=== PATIENT | female | born 1960 | race African-American/Black ===

== ENCOUNTER 2016-11-13 12:51 | Inpatient (IN) | payer BC ==
--- NOTE | 2016-11-13 13:08 | PDOC ---
History of Present Illness - General Chief Complaint: Chest Pain Stated Complaint: CHEST PAIN Time Seen by Provider: 11/13/16 13:07 - History of Present Illness Initial Comments: 11/13/16 13:07 Patient is a 56 year old female Past History - Past Medical History Allergies/Adverse Reactions: Allergies Allergy/AdvReac Type Severity Reaction Status Date / Time No Known Allergies Allergy Verified 11/13/16 13:06 Home Medications: Ambulatory Orders Cyclobenzaprine HCl [Flexeril] 5 mg PO TID PRN #12 tablet 04/20/15 Naproxen [Naprosyn -] 500 mg PO BID PRN #14 tablet 04/20/15 Diabetes: Yes (BORDERLINE) - Psycho/Social/Smoking Cessation Hx Suicidal Ideation: No Smoking History: Never smoked Hx Alcohol Use: No Drug/Substance Use Hx: No *Physical Exam - Vital Signs Last Vital Signs Temp Pulse Resp BP Pulse Ox 102.4 F H 81 16 178/72 98 11/13/16 12:55 11/13/16 12:55 11/13/16 12:55 11/13/16 12:55 11/13/16 12:55 Medical Decision Making - Medical Decision Making 11/13/16 13:08
--- NOTE | 2016-11-13 13:32 | PDOC ---
History of Present Illness - General History Source: Patient Exam Limitations: No Limitations <Gris Germain - Last Filed: 11/13/16 14:23> - General History Source: Patient Exam Limitations: No Limitations - History of Present Illness Initial Comments: 11/13/16 13:58 The patient is a 56 year old female with a significant PMH of hypertension and borderline diabetes who presents to the emergency department with midsternal chest pain beginning approximately yesterday morning. The patient reports the chest pain as localized in the midsternal area with no radiation and constant since yesterday. Her chest pain is pleuritic in nature and exacerbated by lying on her right side. Patient states her chest pain is alleviated by lying on her left side. She reports associated fever, chills, shortness of breath and productive cough (brown-yellow sputum). The patient notes that this chest pain is similar to an episode she had last week, which she believes was due to gas. She took advil and pepto bismol for her chest pain to no relief. The patient was prescribed water pills for hypertension last month but she admits to be non- compliant. The patient denies any recent travel or sick contacts. The patient denies headache or dizziness. Denies numbness or tingling. Denies abdominal pain, nausea, vomiting, diarrhea or constipation. Denies hemoptysis. Denies dysuria, frequency, urgency or hematuria. Allergies: NKDA Social history: Occasional alcohol use. No reported cigarette or drug use. PCP: Dr. Zamora <Js Hackett - Last Filed: 11/13/16 15:45> - General Chief Complaint: Chest Pain Stated Complaint: CHEST PAIN Time Seen by Provider: 11/13/16 13:07 Past History - Past Medical History Diabetes: Yes (BORDERLINE) - Psycho/Social/Smoking Cessation Hx Suicidal Ideation: No Smoking History: Never smoked Hx Alcohol Use: No Drug/Substance Use Hx: No <Gris Germain - Last Filed: 11/13/16 14:23> <Js Hackett - Last Filed: 11/13/16 15:45> - Past Medical History Allergies/Adverse Reactions: Allergies Allergy/AdvReac Type Severity Reaction Status Date / Time No Known Allergies Allergy Verified 11/13/16 13:06 Home Medications: Ambulatory Orders Unobtainable [Unobtainable] 11/13/16 Review of Systems - Review of Systems Comments:: 11/13/16 13:58 GENERAL/CONSTITUTIONAL: (+) Fevers. (+) Chills. No weakness. HEAD, EYES, EARS, NOSE AND THROAT: No change in vision. No ear pain or discharge. No sore throat. CARDIOVASCULAR: (+) Midsternal chest pain. (+) Shortness of breath RESPIRATORY: (+) Cough, productive of brown-yellow sputum. No wheezing, or hemoptysis. GASTROINTESTINAL: No nausea, vomiting, diarrhea or constipation. GENITOURINARY: No dysuria, frequency, or change in urination. MUSCULOSKELETAL: No joint or muscle swelling or pain. No neck or back pain. SKIN: No rash NEUROLOGIC: No headache, vertigo, loss of consciousness, or change in strength/ sensation. ENDOCRINE: No increased thirst. No abnormal weight change. HEMATOLOGIC/LYMPHATIC: No anemia, easy bleeding, or history of blood clots. ALLERGIC/IMMUNOLOGIC: No hives or skin allergy. <Js Hackett - Last Filed: 11/13/16 15:45> *Physical Exam - Vital Signs Last Vital Signs Temp Pulse Resp BP Pulse Ox 102.4 F H 81 16 178/72 98 11/13/16 12:55 11/13/16 12:55 11/13/16 12:55 11/13/16 12:55 11/13/16 12:55 <Gris Germain - Last Filed: 11/13/16 14:23> - Vital Signs Last Vital Signs Temp Pulse Resp BP Pulse Ox 102.4 F H 81 16 178/72 98 11/13/16 12:55 11/13/16 12:55 11/13/16 12:55 11/13/16 12:55 11/13/16 12:55 - Physical Exam Comments: 11/13/16 14:10 GENERAL: Awake, alert, and fully oriented, in no acute distress HEAD: No signs of trauma EYES: PERRLA, EOMI, sclera anicteric, conjunctiva clear ENT: Auricles normal inspection, hearing grossly normal, nares patent, oropharynx clear without exudates. Moist mucosa NECK: Normal ROM, supple, no lymphadenopathy, JVD, or masses LUNGS: (+) Sternal chest wall tenderness. Breath sounds equal, clear to auscultation bilaterally. No wheezes, and no crackles HEART: Regular rate and rhythm, normal S1 and S2, no murmurs, rubs or gallops ABDOMEN: (+) Obese. Soft, nontender, normoactive bowel sounds. No guarding, no rebound. No masses EXTREMITIES: Normal range of motion, no edema. No clubbing or cyanosis. No cords, erythema, or tenderness. DP/PT pulses 2+ and symmetric. NEUROLOGICAL: Cranial nerves II through XII grossly intact. Normal speech. SKIN: Warm, Dry, normal turgor, no rashes or lesions noted. <Js Hackett - Last Filed: 11/13/16 15:45> Heart Score/ECG Review #1 General ECG Interpretation: Sinus Rhythm, Normal Rate (76 bpm), Normal Intervals , No acute ischemic changes Compared to previous ECG there are: Previous ECG unavail - ECG Intrepretation Rhythm: Regularly Irregular - [place]: Normal - P and [place] Comment:: 11/13/16 13:42 TWI III, AVF <Gris Germain - Last Filed: 11/13/16 14:23> ED Treatment Course - LABORATORY CBC & Chemistry Diagram: 11/13/16 13:46 11/13/16 13:46 - RADIOLOGY Radiograph Interpretation: 11/13/16 15:42 Exam: CXR, interpreted by Dr. Guardado Reviewed by: Dr. Germain Impression: Shallow inspiration. No evidence of active disease. <Js Hackett - Last Filed: 11/13/16 15:45> Medical Decision Making - Medical Decision Making 11/13/16 13:29 56 yo F with h/o DM HTN, with chest pain, with associated SOB , chills, and feeling feverish. feels pain is worse with lying flat and deep breathing. no n/v no leg swelling .no h/o pe or dvt. on exam awake alert lungs clear heart RRR no mrg. abd soft NT ND. ext differential dgx, mi, pna, uti, angina, plan labs cardia, ekg cbc cmp cxr . aspirin. tylenol for fever. cxr r/o pna. phuong admit. 11/13/16 14:24 <Gris Germain - Last Filed: 11/13/16 14:23> *DC/Admit/Observation/Transfer - Attestations Scribe Attestion: 11/13/16 14:10 Documentation prepared by Js Hackett, acting as regional medical director for Gris Germain MD. <Js Hackett - Last Filed: 11/13/16 15:45>
[2016-11-13] MEDS ORDERED: ACETAMINOPHEN 325 MG TABLET (FP) PO ONE (13:40)
[2016-11-13] MEDS ORDERED: ACETAMINOPHEN 325 MG TABLET (FP) ONE (13:53)
[2016-11-13 14:26] LABS: URINE APPEARANCE CLEAR; URINE BILIRUBIN NEGATIVE (NEGATIVE); URINE BLOOD 1+ (NEGATIVE); URINE COLOR LT. YELLOW; URINE GLUCOSE (UA) NEGATIVE (NEGATIVE); URINE KETONE NEGATIVE (NEGATIVE); URINE LEUK ESTERASE NEGATIVE (NEGATIVE); URINE NITRITE NEGATIVE (NEGATIVE)
[2016-11-13 14:32] LABS: URINE PROTEIN 1+ (NEGATIVE)
[2016-11-13 14:46] LABS: BASOPHIL 0.5 % (0-2.0); EOSINOPHIL 0.3 % (0-4.5); MCH 28.7 pg (25.7-33.7); MCHC 32.8 g/dl (32.0-36.0); MEAN CELL VOLUME 87.4 fl (80-96); MEAN PLT VOLUME 6.4 fl (7.5-11.1); NEUTROPHILS 84.7 % (42.8-82.8); PLATELET COUNT 247 K/MM3 (134-434); RDW 13.8 % (11.6-15.6); WHITE BLOOD COUNT 13.9 K/mm3 (4.0-10.0)
[2016-11-13 14:52] LABS: URINE MUCUS RARE; URINE RBC 13 /hpf (0-3); URINE WBC 2 /hpf (3-5)
[2016-11-13 15:40] LABS: ALBUMIN 3.2 g/dl (3.4-5.0); ANION GAP 11 (8-16); BILIRUBIN,TOTAL 0.5 mg/dL (0.2-1.0); CALCIUM 8.8 mg/dL (8.5-10.1); CO2 28 mmol/L (21-32); CREATININE 0.9 mg/dL (0.55-1.02); GLUCOSE,RANDOM 105 mg/dL (74-106); SGOT/AST 11 U/L (15-37); SGPT/ALT 19 U/L (12-78); TOT PROT 7.5 g/dl (6.4-8.2)
[2016-11-13 15:43] LABS: ALK PHOS 90 U/L (45-117); CPK 79 IU/L (26-192); TROPONIN I < 0.02 ng/ml (0.00-0.05)
--- NOTE | 2016-11-13 18:38 | PDOC ---
*Physical Exam - Vital Signs Last Vital Signs Temp Pulse Resp BP Pulse Ox 102.4 F H 81 16 178/72 98 11/13/16 12:55 11/13/16 12:55 11/13/16 12:55 11/13/16 12:55 11/13/16 12:55 <Zita Roy - Last Filed: 11/13/16 19:31> - Vital Signs Last Vital Signs Temp Pulse Resp BP Pulse Ox 102.4 F H 81 16 178/72 98 11/13/16 12:55 11/13/16 12:55 11/13/16 12:55 11/13/16 12:55 11/13/16 12:55 <Mehdi Rivas - Last Filed: 11/13/16 19:35> ED Treatment Course - LABORATORY CBC & Chemistry Diagram: 11/13/16 13:46 11/13/16 13:46 - ADDITIONAL ORDERS Additional order review: Laboratory Results 11/13/16 11/13/16 14:07 13:46 Sodium 138 Potassium 4.0 Chloride 99 Carbon Dioxide 28 Anion Gap 11 BUN 9 D Creatinine 0.9 Creat Clearance w eGFR > 60 Random Glucose 105 Calcium 8.8 Total Bilirubin 0.5 AST 11 L ALT 19 Alkaline Phosphatase 90 Creatine Kinase 79 Troponin I < 0.02 Total Protein 7.5 Albumin 3.2 L Urine Color Lt. yellow Urine Appearance Clear Urine pH 7.0 Urine Protein 1+ H Urine Glucose (UA) Negative Urine Ketones Negative Urine Blood 1+ H Urine Nitrite Negative Urine Bilirubin Negative Urine Urobilinogen 1.0 Ur Leukocyte Esterase Negative Urine RBC 13 Urine WBC 2 Ur Epithelial Cells Rare Urine Mucus Rare 11/13/16 13:46 RBC 4.27 MCV 87.4 MCHC 32.8 RDW 13.8 MPV 6.4 L Neutrophils % 84.7 H Lymphocytes % 7.8 L Monocytes % 6.7 Eosinophils % 0.3 Basophils % 0.5 - Medications Given in the ED: ED Medications Discontinued Medications Generic Name Dose Route Start Last Admin Trade Name Freq PRN Reason Stop Dose Admin Acetaminophen 650 mg 11/13/16 13:40 11/13/16 14:00 Tylenol - PO 11/13/16 13:41 650 mg ONCE ONE Administration <Zita Roy - Last Filed: 11/13/16 19:31> - LABORATORY CBC & Chemistry Diagram: 11/13/16 13:46 11/13/16 13:46 - ADDITIONAL ORDERS Additional order review: Laboratory Results 11/13/16 11/13/16 14:07 13:46 Sodium 138 Potassium 4.0 Chloride 99 Carbon Dioxide 28 Anion Gap 11 BUN 9 D Creatinine 0.9 Creat Clearance w eGFR > 60 Random Glucose 105 Calcium 8.8 Total Bilirubin 0.5 AST 11 L ALT 19 Alkaline Phosphatase 90 Creatine Kinase 79 Troponin I < 0.02 Total Protein 7.5 Albumin 3.2 L Urine Color Lt. yellow Urine Appearance Clear Urine pH 7.0 Urine Protein 1+ H Urine Glucose (UA) Negative Urine Ketones Negative Urine Blood 1+ H Urine Nitrite Negative Urine Bilirubin Negative Urine Urobilinogen 1.0 Ur Leukocyte Esterase Negative Urine RBC 13 Urine WBC 2 Ur Epithelial Cells Rare Urine Mucus Rare 11/13/16 13:46 RBC 4.27 MCV 87.4 MCHC 32.8 RDW 13.8 MPV 6.4 L Neutrophils % 84.7 H Lymphocytes % 7.8 L Monocytes % 6.7 Eosinophils % 0.3 Basophils % 0.5 - Medications Given in the ED: ED Medications Discontinued Medications Generic Name Dose Route Start Last Admin Trade Name Freq PRN Reason Stop Dose Admin Acetaminophen 650 mg 11/13/16 13:40 11/13/16 14:00 Tylenol - PO 11/13/16 13:41 650 mg ONCE ONE Administration <Mehdi Rivas - Last Filed: 11/13/16 19:35> Medical Decision Making - Medical Decision Making Will give Rocephin and Zithromax Will obtain blood culture and lactic acid Dx: pneumonia VALENTINO Will admit to Dr. Berger. <Zita Roy - Last Filed: 11/13/16 19:31> *DC/Admit/Observation/Transfer <Zita Roy - Last Filed: 11/13/16 19:31> - Discharge Dispostion Admit: Yes <Mehdi Rivas - Last Filed: 11/13/16 19:35> Diagnosis at time of Disposition: Pleural effusion Pneumonia Qualifiers: Pneumonia type: due to unspecified organism Laterality: left Lung location: upper lobe of lung Qualified Code(s): J18.1 - Lobar pneumonia, unspecified organism - Discharge Dispostion Condition at time of disposition: Improved
[2016-11-13] MEDS ORDERED: AZITHROMYCIN IVPB 500 MG in DEXTROSE 5%-WATER - 250 ML IVPB ONE (18:40)
[2016-11-13] MEDS ORDERED: CEFTRIAXONE 1 GM in DEXTROSE 5%-WATER - 50 ML IVPB ONE (18:40)
[2016-11-13] MEDS ORDERED: AZITHROMYCIN IVPB 250 ML IVPB ONE (19:13)
[2016-11-13] MEDS ORDERED: CEFTRIAXONE 50 ML ONE (19:13)
[2016-11-13] MEDS ORDERED: IBUPROFEN 600 MG TABLET (FP) PO ONE ×2 (19:30→19:31)
--- NOTE | 2016-11-13 20:49 | HP ---
Admitting History and Physical - Primary Care Physician PCP: Ana Luisa Berger - Admission History of Present Illness: 56 year old female with a significant PMH of hypertension and borderline diabetes who presents to the emergency department with midsternal chest pain beginning approximately yesterday morning. The patient reports the chest pain as localized in the midsternal area with no radiation and constant since yesterday. Her chest pain is pleuritic in nature and exacerbated by lying on her right side. Patient states her chest pain is alleviated by lying on her left side. She reports associated fever, chills, shortness of breath and productive cough (brown-yellow sputum). The patient notes that this chest pain is similar to an episode she had last week, which she believes was due to gas. She took advil and pepto bismol for her chest pain to no relief. - Past Medical History Cardiovascular: Yes: HTN Endocrine: Yes: Diabetes Mellitus - Smoking History Smoking history: Never smoked - Alcohol/Substance Use Hx Alcohol Use: No Home Medications - Allergies Allergies/Adverse Reactions: Allergies Allergy/AdvReac Type Severity Reaction Status Date / Time No Known Allergies Allergy Verified 11/13/16 13:06 - Home Medications Home Medications: Ambulatory Orders Unobtainable [Unobtainable] 11/13/16 Physical Examination Vital Signs: Vital Signs Temperature 101.4 F H 11/13/16 19:25 Pulse Rate 82 11/13/16 19:25 Respiratory Rate 22 11/13/16 19:25 Blood Pressure 137/72 11/13/16 19:25 O2 Sat by Pulse Oximetry (%) 97 11/13/16 19:25 Constitutional: Yes: No Distress HENT: Yes: Atraumatic Neck: Yes: Supple Cardiovascular: Yes: Regular Rate and Rhythm Respiratory: Yes: Rhonchi Gastrointestinal: Yes: Normal Bowel Sounds Extremities: Yes: WNL Neurological: Yes: Alert, Oriented Problem List - Problems (1) Pleural effusion Code(s): J90 - PLEURAL EFFUSION, NOT ELSEWHERE CLASSIFIED (2) Pneumonia Assessment/Plan: iv abc prn tylenol for fever bcx id consult Code(s): J18.9 - PNEUMONIA, UNSPECIFIED ORGANISM Qualifiers: Pneumonia type: due to unspecified organism Laterality: left Lung location: upper lobe of lung Qualified Code(s): J18.1 - Lobar pneumonia, unspecified organism Assessment/Plan Laboratory Tests 11/13/16 11/13/16 11/13/16 13:46 13:46 14:07 WBC 13.9 H RBC 4.27 Hgb 12.2 Hct 37.3 MCV 87.4 MCH 28.7 MCHC 32.8 RDW 13.8 Plt Count 247 MPV 6.4 L Neutrophils % 84.7 H Lymphocytes % 7.8 L Monocytes % 6.7 Eosinophils % 0.3 Basophils % 0.5 Sodium 138 Potassium 4.0 Chloride 99 Carbon Dioxide 28 Anion Gap 11 BUN 9 D Creatinine 0.9 Creat Clearance w eGFR > 60 Random Glucose 105 Lactic Acid Calcium 8.8 Total Bilirubin 0.5 AST 11 L ALT 19 Alkaline Phosphatase 90 Creatine Kinase 79 Troponin I < 0.02 Total Protein 7.5 Albumin 3.2 L Urine Color Lt. yellow Urine Appearance Clear Urine pH 7.0 Ur Specific [place] 1.015 Urine Protein 1+ H Urine Glucose (UA) Negative Urine Ketones Negative Urine Blood 1+ H Urine Nitrite Negative Urine Bilirubin Negative Urine Urobilinogen 1.0 Ur Leukocyte Esterase Negative Urine RBC 13 Urine WBC 2 Ur Epithelial Cells Rare Urine Mucus Rare 11/13/16 18:50 WBC RBC Hgb Hct MCV MCH MCHC RDW Plt Count MPV Neutrophils % Lymphocytes % Monocytes % Eosinophils % Basophils % Sodium Potassium Chloride Carbon Dioxide Anion Gap BUN Creatinine Creat Clearance w eGFR Random Glucose Lactic Acid 1.9 Calcium Total Bilirubin AST ALT Alkaline Phosphatase Creatine Kinase Troponin I Total Protein Albumin Urine Color Urine Appearance Urine pH Ur Specific [place] Urine Protein Urine Glucose (UA) Urine Ketones Urine Blood Urine Nitrite Urine Bilirubin Urine Urobilinogen Ur Leukocyte Esterase Urine RBC Urine WBC Ur Epithelial Cells Urine Mucus
[2016-11-14 02:38] VITALS: BMI 47.0
[2016-11-14 07:55] LABS: BASOPHIL 0.4 % (0-2.0); EOSINOPHIL 0.8 % (0-4.5); MCH 28.9 pg (25.7-33.7); MEAN CELL VOLUME 87.7 fl (80-96); MEAN PLT VOLUME 6.6 fl (7.5-11.1); NEUTROPHILS 80.2 % (42.8-82.8); PLATELET COUNT 244 K/MM3 (134-434); RDW 13.7 % (11.6-15.6); WHITE BLOOD COUNT 15.5 K/mm3 (4.0-10.0)
[2016-11-14 08:02] LABS: ALBUMIN 2.9 g/dl (3.4-5.0); ANION GAP 10 (8-16); CALCIUM 8.8 mg/dL (8.5-10.1); CO2 29 mmol/L (21-32); CREATININE 0.8 mg/dL (0.55-1.02); GLUCOSE,RANDOM 109 mg/dL (74-106); SGOT/AST 8 U/L (15-37); SGPT/ALT 18 U/L (12-78)
[2016-11-14 08:04] LABS: ALK PHOS 81 U/L (45-117); BILIRUBIN,TOTAL 0.4 mg/dL (0.2-1.0); TOT PROT 6.9 g/dl (6.4-8.2)
[2016-11-14] MEDS ORDERED: PT OWN MED DRAWER 7, Y5N ONE (09:03)
[2016-11-14] MEDS ORDERED: CEFTRIAXONE 1 GM in DEXTROSE 5%-WATER - 50 ML IVPB SCH ×2 (10:00→11:00)
[2016-11-14] MEDS ORDERED: DEXTROSE 5%-WATER - 50 ML IVPB ONE ×3 (11:42→17:23)
[2016-11-14] MEDS ORDERED: cefTRIAXone SODIUM 1 GM VIAL ONE (11:42)
--- NOTE | 2016-11-14 13:32 | CONSULT ---
Consult Consult Specialty:: infectious diseases Reason for Consultation:: pneumonia - History of Present Illness Chief Complaint: sob,cough,chills ,sweats History of Present Illness: morbidly obese 57 y/o female who came back from [facility] [place] in [place] ahs not been feeling well for a week or so says had chills and night sweats last two days she has been feeling very sick and decided to come to the hospital patient says she is bordereling diabetes and hypertensive patient was worked and found to ahve pneumonia and was started on abx patient also came in with leukocytosis which ahs increased since admission currently she feels well and says she can walk a bit now denies any fever,nausea or vomiting - History Source History Provided By: Patient Limitations to Obtaining History: No Limitations - Past Medical History Cardio/Vascular: Yes: HTN Endocrine: Yes: Diabetes Mellitus - Alcohol/Substance Use Hx Alcohol Use: No - Smoking History Smoking history: Never smoked Home Medications - Allergies Allergies/Adverse Reactions: Allergies Allergy/AdvReac Type Severity Reaction Status Date / Time No Known Allergies Allergy Verified 11/13/16 13:06 - Home Medications Home Medications: Ambulatory Orders Unobtainable [Unobtainable] 11/13/16 Review of Systems - Review of Systems Constitutional: reports: Chills, Night Sweats Eyes: reports: No Symptoms HENT: reports: No Symptoms Neck: reports: No Symptoms Cardiovascular: reports: No Symptoms Respiratory: reports: Cough, SOB Gastrointestinal: reports: No Symptoms Genitourinary: reports: No Symptoms Musculoskeletal: reports: No Symptoms Integumentary: reports: No Symptoms Neurological: reports: No Symptoms Endocrine: reports: No Symptoms Hematology/Lymphatic: reports: No Symptoms Psychiatric: reports: No Symptoms Physical Exam Vital Signs: Vital Signs Temperature 97.9 F 11/14/16 08:35 Pulse Rate 56 L 11/14/16 08:35 Respiratory Rate 18 11/14/16 08:35 Blood Pressure 147/71 11/14/16 08:35 O2 Sat by Pulse Oximetry (%) 98 11/14/16 09:00 Constitutional: Yes: Calm, Obese (morbid) Eyes: Yes: Conjunctiva Clear HENT: Yes: Atraumatic Neck: Yes: Supple Cardiovascular: Yes: Regular Rate and Rhythm Respiratory: Yes: Regular, On Nasal O2, Poor Air Entry (at the bases and on rt side) Gastrointestinal: Yes: Normal Bowel Sounds, Soft Musculoskeletal: Yes: WNL Extremities: Yes: WNL Neurological: Yes: Alert, Oriented Psychiatric: Yes: Alert, Oriented Labs: CBC, BMP 11/14/16 06:30 11/14/16 06:30 Imaging - Results Chest X-ray: Report Reviewed, Image Reviewed Cat Scan: Report Reviewed, Image Reviewed Assessment/Plan Problem List - Problems (1) Pleural effusion Code(s): J90 - PLEURAL EFFUSION, NOT ELSEWHERE CLASSIFIED (2) Pneumonia Code(s): J18.9 - PNEUMONIA, UNSPECIFIED ORGANISM Qualifiers: Pneumonia type: due to unspecified organism Laterality: left Lung location: upper lobe of lung Qualified Code(s): J18.1 - Lobar pneumonia, unspecified organism patient denies any loss of weight plan will continue abx incentive omar monitor wbc rest as per primary team
[2016-11-14] MEDS ORDERED: PIPERACILLIN/TAZOBACTAM 3.375 GM VIAL IVPB ONE ×2 (14:25→17:23)
[2016-11-14] MEDS: PIPERACILLIN/TAZOB 3.375 GM 3.375 GM in DEXTROSE 5%-WATER - 50 ML IVPB SCH ×2 (14:32→17:26)
[2016-11-14] MEDS ORDERED: ACETAMINOPHEN 325 MG TABLET (FP) PO PRN (20:33)
--- NOTE | 2016-11-14 20:35 | PN ---
Progress Note, Physician - Current Medication List Current Medications: Active Medications Acetaminophen (Tylenol -) 650 mg PO Q6H PRN PRN Reason: FEVER OR PAIN Piperacillin Sod/Tazobactam (Sod 3.375 gm/ Dextrose) 50 mls @ 100 mls/hr IVPB Q8H-IV MARLENY PRN Reason: Protocol Last Admin: 11/14/16 17:26 Dose: 100 mls/hr - Objective Vital Signs: Vital Signs Temperature 97.5 F L 11/14/16 17:27 Pulse Rate 60 11/14/16 17:27 Respiratory Rate 20 11/14/16 17:27 Blood Pressure 121/72 11/14/16 17:27 O2 Sat by Pulse Oximetry (%) 98 11/14/16 09:00 Constitutional: Yes: No Distress HENT: Yes: Atraumatic Neck: Yes: Supple Cardiovascular: Yes: Regular Rate and Rhythm Respiratory: Yes: CTA Bilaterally Gastrointestinal: Yes: Normal Bowel Sounds Extremities: Yes: WNL Neurological: Yes: Alert, Oriented Labs: CBC, BMP 11/14/16 06:30 11/14/16 06:30 Problem List - Problems (1) Pleural effusion Code(s): J90 - PLEURAL EFFUSION, NOT ELSEWHERE CLASSIFIED (2) Pneumonia Assessment/Plan: iv abc prn tylenol for fever bcx id consult Code(s): J18.9 - PNEUMONIA, UNSPECIFIED ORGANISM Qualifiers: Pneumonia type: due to unspecified organism Laterality: left Lung location: upper lobe of lung Qualified Code(s): J18.1 - Lobar pneumonia, unspecified organism
[2016-11-15] MEDS: PIPERACILLIN/TAZOB 3.375 GM 3.375 GM in DEXTROSE 5%-WATER - 50 ML IVPB SCH ×3 (01:27→17:34)
[2016-11-15 07:21] LABS: BASOPHIL 0.4 % (0-2.0); EOSINOPHIL 1.6 % (0-4.5); MCH 28.8 pg (25.7-33.7); MCHC 32.8 g/dl (32.0-36.0); MEAN CELL VOLUME 87.9 fl (80-96); MEAN PLT VOLUME 6.7 fl (7.5-11.1); NEUTROPHILS 71.5 % (42.8-82.8); PLATELET COUNT 293 K/MM3 (134-434); RDW 13.9 % (11.6-15.6); WHITE BLOOD COUNT 11.1 K/mm3 (4.0-10.0)
[2016-11-15 09:21] LABS: ALBUMIN 3.1 g/dl (3.4-5.0); ALK PHOS 88 U/L (45-117); ANION GAP 7 (8-16); BILIRUBIN,TOTAL 0.2 mg/dL (0.2-1.0); CALCIUM 9.1 mg/dL (8.5-10.1); CO2 29 mmol/L (21-32); CREATININE 0.9 mg/dL (0.55-1.02); GLUCOSE,RANDOM 112 mg/dL (74-106); SGOT/AST 13 U/L (15-37); SGPT/ALT 21 U/L (12-78); TOT PROT 7.4 g/dl (6.4-8.2)
[2016-11-15] MEDS ORDERED: PIPERACILLIN/TAZOBACTAM 3.375 GM VIAL IVPB ONE ×2 (09:39→17:28)
[2016-11-15] MEDS ORDERED: DEXTROSE 5%-WATER - 50 ML IVPB ONE ×2 (09:40→17:29)
--- NOTE | 2016-11-15 14:10 | PN ---
Progress Note, Physician History of Present Illness: doing well no complaints breathing well - Current Medication List Current Medications: Active Medications Acetaminophen (Tylenol -) 650 mg PO Q6H PRN PRN Reason: FEVER OR PAIN Piperacillin Sod/Tazobactam (Sod 3.375 gm/ Dextrose) 50 mls @ 100 mls/hr IVPB Q8H-IV MARLENY PRN Reason: Protocol Last Admin: 11/15/16 10:31 Dose: 100 mls/hr - Objective Vital Signs: Vital Signs Temperature 98.4 F 11/15/16 10:00 Pulse Rate 74 11/15/16 10:00 Respiratory Rate 20 11/15/16 10:00 Blood Pressure 144/78 11/15/16 10:00 O2 Sat by Pulse Oximetry (%) 98 11/15/16 09:00 Constitutional: Yes: No Distress, Calm, Obese Cardiovascular: Yes: Regular Rate and Rhythm Respiratory: Yes: Regular, CTA Bilaterally Gastrointestinal: Yes: Normal Bowel Sounds, Soft Musculoskeletal: Yes: WNL Extremities: Yes: WNL Neurological: Yes: Alert, Oriented Labs: CBC, BMP 11/15/16 06:30 11/15/16 09:07 Assessment/Plan Problem List - Problems (1) Pleural effusion Code(s): J90 - PLEURAL EFFUSION, NOT ELSEWHERE CLASSIFIED (2) Pneumonia Code(s): J18.9 - PNEUMONIA, UNSPECIFIED ORGANISM Qualifiers: Pneumonia type: due to unspecified organism Laterality: left Lung location: upper lobe of lung Qualified Code(s): J18.1 - Lobar pneumonia, unspecified organism patient denies any loss of weight plan will continue abx wbc trending down patient can be switched to augmentin 875mg twice a day after the evening dose to be given for 5 more days patient has been explained in detail
[2016-11-15 14:28] VITALS: BP 131/70; PULSE 67; TEMP 98
--- NOTE | 2016-11-15 16:48 | EKG ---
Test Reason : Blood Pressure : / mmHG Vent. Rate : 076 BPM Atrial Rate : 076 BPM P-R Int : 146 ms QRS Dur : 080 ms QT Int : 352 ms P-R-T Axes : 000 044 -16 degrees QTc Int : 396 ms NORMAL SINUS RHYTHM NONSPECIFIC T WAVE ABNORMALITY ABNORMAL ECG NO PREVIOUS ECGS AVAILABLE Confirmed by RICCARDO CARTER MD ([id number]) on 11/15/2016 4:47:59 PM Referred By: Confirmed By:RICCARDO CARTER MD
[2016-11-15] MEDS ORDERED: guaiFENesin/CODEINE 5 ML UNIT-DOSE CUPS PO ONE (18:30)
--- NOTE | 2016-11-15 19:08 | DS ---
Physical Examination Vital Signs: Vital Signs Temperature 98.0 F 11/15/16 14:27 Pulse Rate 67 11/15/16 14:27 Respiratory Rate 20 11/15/16 14:27 Blood Pressure 131/70 11/15/16 14:27 O2 Sat by Pulse Oximetry (%) 98 11/15/16 09:00 Constitutional: Yes: No Distress HENT: Yes: Atraumatic Neck: Yes: Supple Cardiovascular: Yes: Regular Rate and Rhythm Respiratory: Yes: CTA Bilaterally Gastrointestinal: Yes: Normal Bowel Sounds Extremities: Yes: WNL Edema: No Peripheral Pulses WNL: Yes Neurological: Yes: Alert, Oriented Labs: CBC, BMP 11/15/16 06:30 11/15/16 09:07 Discharge Summary Reason For Visit: PLEURAL EFFUSION,PNEUMONIA Current Active Problems Pleural effusion (Acute) Pneumonia (Acute) Condition: Improved - Instructions Referrals: Ally Zamora [Primary Care Provider] - - Home Medications Comprehensive Discharge Medication List: Ambulatory Orders Amoxicillin/Potassium Clav [Augmentin 875-125 Tablet] 1 each PO BID #14 tablet 11/15/16 [place] [facility]
== END 2016-11-15 19:58 | disposition home or self-care (01) | DRG 194 ==
LOC: JER 12:51 → JERBED 19:35 → J8W 23:25
PROVIDERS: ADMIT Internal Medicine; ATTEND Internal Medicine
DX: J18.9 Pneumonia, unspecified organism (principal); J90 Pleural effusion, not elsewhere classified; I10 Essential (primary) hypertension
CPT/HCPCS: 36415; 71020-TC; 71275-TC; 80053; 81003; 81015; 83605; 84484; 85025; 87040; 87086; 93005; 93010; 99285-25